=== PATIENT | female | born 1945 | race Caucasian/White ===

== ENCOUNTER → 2017-08-17 10:50 | Outpatient (CLI) | payer MEDICARE, OTHER, SELFPAY ==
--- NOTE | 2017-08-17 10:52 | DI.CT.S_ITS ---
PROCEDURE: CT CHEST WO CON INDICATIONS: LEUKOCYTOSIS TECHNIQUE: Noncontrast 2.0-2.5 mm thick sections acquired from the pulmonary apices to the posterior costophrenic angles. 7 mm thick coronal and sagittal MIP reformats were then acquired. A low radiation dose technique was utilized. COMPARISON: [facility], CT, CHEST/ABD/PEL WITH CONTRAST, 09/27/2013, 9:40. [facility], CT, CHEST/ABD/PEL WITHOUT CONTRAST, 07/04/2014, 8:29. [facility], CT, NECK/CHEST/ABD/PEL WO CONTRAST, 05/30/2015, 10:19. [facility], CT, NECK/CHEST/ABD/PEL WO CONTRAST, 07/30/2016, 13:52. FINDINGS: Image quality: Diagnostic, given the low radiation dose technique. Lungs and pleura: No change in the focal groundglass nodular region involving the posterior right upper lobe since 07/30/16, or 2 several more remote studies dating back to 09/27/13. No acute consolidation pleural effusion or pneumothorax. Central airways appear grossly patent. Scattered bilateral atelectasis/scarring. Mediastinum: Coronary artery calcifications are present. Heart size is normal. No pericardial effusion. No mediastinal adenopathy by size criteria. Thoracic aorta and central pulmonary arteries are normal in size. Esophagus is normal in caliber. No hiatal hernia. Bones and chest wall: No suspicious bony lesions. No vertebral body compression fractures. No axillary or supraclavicular adenopathy by size criteria. Thyroid gland negative. Abdomen: Incidental colonic diverticulosis. Gallbladder surgically absent. IMPRESSION: Unchanged appearance of right upper lobe ground glass nodule dating back to 2013. Recommend followup in one year to document 5 year total surveillance, as referenced below. Fleischner Society criteria for SOLID lung nodule followup. Nodule size (mm)Low-risk patientHigh-risk patient<6 (single or multiple)No routine followup.Optional CT at 12 months. 6-8 (single or multiple)CT at 6-12 months, then optional CT at 18-24 mo.CT at 6-12 months, then CT at 18-24 months. >8 (single)CT at 3 months, PET-CT, or biopsy. Same as for low-risk pts. >8 (multiple)CT at 3-6 months, then optional CT at 18-24 mo.CT at 3-6 months, then CT at 18-24 months. Fleischner Society criteria for SUB-SOLID lung nodule followup. Solitary pure ground-glass nodules<6 mm (ground glass or part solid)No followup needed. 6 mm or larger (ground glass)CT at 6-12 months to confirm persistence, then CT every 2 years until 5 years.6 mm or larger (part solid)CT at 3-6 months to confirm persistence, then annual CT until 5 years if unchanged and solid component remains <6 mm. Multiple sub-solid nodules<6 mmCT at 3-6 months, then CT consider at 2 & 4 years for high risk patients. [address] at 3-6 months. Subsequent management based on most suspicious lesions. Recommendations do not apply to lung cancer screening, patients with immunosuppression, or patients with known primary cancer. Dictated by: Artem Gunn M.D. on 08/17/2017 at 12:09 Approved by: Artem Gnun M.D. on 08/17/2017 at 12:14
== END ==
PROVIDERS: Visit Provider Nurse Practitioner Gerontology
DX: D72.829 Elevated white blood cell count, unspecified (principal)
CPT/HCPCS: 36415; 71250; 80053; 85025

== ENCOUNTER → 2017-08-17 11:08 | Outpatient (CLI) | payer MEDICARE, OTHER, SELFPAY ==
[2017-08-17 12:42] LABS: Add Manual Diff / Slide Review NO; Basophils Percent Auto 1.2 % (0-2); Eosinophils Percent Auto 2.3 % (2-4); Hematocrit 37.1 % (36-46); Hemoglobin 12.5 g/dL (12.0-16.0); Lymphocytes Percent Auto 42.4 % (25-40); Mean Corpuscular HGB Conc 33.8 % (30-36); Mean Corpuscular Hemoglobin 29.9 PG (26-34); Mean Corpuscular Volume 88.5 fL (80-100); Monocytes Percent Auto 10.6 % (3-14); Neutrophils Absolute Auto 4400 /uL (3000-5900); Neutrophils Percent Auto 43.5 % (50-75); Platelet Count 334 X10^3/uL (150-400); Red Blood Cell Count 4.19 X10^6/uL (4.0-5.2); Red Cell Distribution Width 14.9 % (11.6-14.8); White Blood Cell Count 10.2 X10^3/uL (4.5-11.0)
[2017-08-17 13:07] LABS: Alanine Aminotransferase 21 IU/L (9-52); Albumin 4.6 g/dL (3.5-5.0); Albumin Globulin Ratio 1.6 (1.0-2.8); Alkaline Phosphatase 103 U/L (38-126); Aspartate Aminotransferase 26 IU/L (14-36); BUN Creatinine Ratio 8.9 (6-22); Bilirubin Total 0.6 mg/dL (0.2-1.3); Blood Urea Nitrogen 31 mg/dL (7-17); Calcium 9.9 mg/dL (8.4-10.2); Carbon Dioxide 27 mmol/L (22-32); Chloride 98 mmol/L (98-107); Estimated Glomerular Filt Rate 12.9 mL/min (>60); Globulin 2.9 g/dL (1.7-4.1); Glucose 72 mg/dL (80-110); HEMOLYSIS < 15 (0-50); Potassium 4.8 mmol/L (3.4-5.1); Sodium 140 mmol/L (137-145); Total Protein 7.5 g/dL (6.3-8.2)
== END ==
PROVIDERS: Nurse Practitioner Gerontology; PCP Internal Medicine Hematology & Oncology; Visit Provider Internal Medicine Hematology & Oncology
DX: C84.48 Peripheral T-cell lymphoma, not elsewhere classified, lymph nodes of multiple sites (principal)
CPT/HCPCS: 36415; 80053; 85025

== ENCOUNTER → 2017-08-24 12:18 | Outpatient (CLI) | payer MEDICARE, OTHER, SELFPAY ==
--- NOTE | 2017-08-25 16:44 | DI.NM.S_ITS ---
DATE OF SERVICE: 08/24/2017 PROCEDURE PERFORMED: Exercise treadmill stress and rest myocardial perfusion imaging study with gating to assess ejection fraction and regional wall motion. ORDERING PROVIDER: Lashawn Cisneros MD INDICATIONS: The patient is a 71-year-old female with end-stage renal disease and dyspnea who requires evaluation prior to an artificial kidney. EXERCISE TREADMILL TESTING: The patient was able to exercise for a total of 5 minutes 18 seconds on a standard Etienne protocol, suggesting fair exercise capacity with an SUSIE of +5%. She had a normal hemodynamic response to exercise, achieving a maximum heart rate of 161 BPM (108% of her predicted maximum). She had no chest discomfort. Her resting ECG is normal and there are no significant ST-segment shifts to suggest ischemia. There were no arrhythmias noted except for occasional PVCs. At 4 minutes 30 seconds of exercise at a heart rate of 143 BPM, 24.1 mCi of technetium-99m Myoview IV was injected and the patient was imaged 15 minutes later using a gated SPECT acquisition protocol. The day prior, she had been injected with 25.2 mCi of technetium-99 Myoview and was imaged 30 minutes later following that injection using a gated SPECT acquisition protocol. FINDINGS: 1. RAW DATA: There was fair myocardial tracer uptake although breast shadows are noted. The lung/heart ratio was at the upper limits of normal at 0.40 but with a normal TID ratio of 0.89. 2. QUANTITATIVE GATED SPECT: Post stress ejection fraction is estimated at 75% without a focal wall motion abnormality, and specifically, the anterior wall and apex have brisk contractility. The resting ejection fraction is 74% with an end - diastolic volume of 100 mL. 3. MYOCARDIAL PERFUSION IMAGING: Post stress supine images show a mild perfusion defect in the distal portion of the anterior, anterolateral, and lateral wall extending out to the apex, but this defect nearly completely resolves on prone imaging, although a slight defect remains persistent, but this would be in a location that would be consistent with breast attenuation artifact. The resting images show a similar perfusion pattern with a more profound defect in the distal anterolateral apex. There are no areas of improvement. IMPRESSION: 1. Probable normal myocardial perfusion study. 2. Small- to moderate-sized [id number] fixed perfusion defect in the distal anterior wall, anterolateral wall, and lateral wall extending out to the apex which persists but significantly improves on the prone images and is more notable on resting images. Given the distribution of the defect and the absence of any regional wall motion, this most likely reflects breast attenuation artifact. There is no evidence for any significant myocardial ischemia. 3. Normal left ventricular systolic function without any focal wall motion abnormality. Lung/heart ratio is at the upper limits of normal. 4. Fair exercise capacity without angina or ECG evidence of ischemia with only occasional PVCs. 5. Comparison with the previous study from 05/18/2013 shows an identical perfusion pattern, again with a fixed distal anteroapical defect that was felt to reflect breast attenuation artifact. There has been no significant change, supporting that this most likely does not reflect underlying ischemic heart disease. Ana Rojas - AFIA/sara/ doc#: [id number]/job#: [id number] dd: 08/25/2017 15:32:00 dt: 08/25/2017 16:18:00 DICTATING MD/COPIES TO: Ho Mccollum MD; Lashawn Cisneros MD; Sumanth Gordon MD COPIES MNE: NU; SARANYA; ARCHANA
== END ==
PROVIDERS: PCP Internal Medicine Hematology & Oncology; Visit Provider Internal Medicine Cardiovascular Disease
DX: N18.6 End stage renal disease (principal); R06.00 Dyspnea, unspecified
CPT/HCPCS: 78452; 93016; 93017; 93018; A9502

== ENCOUNTER → 2017-08-25 10:46 | Outpatient (CLI) | payer MEDICARE, OTHER, SELFPAY ==
--- NOTE | 2017-08-25 | DI.ECHO.S_ITS ---
[facility] +---------+ [facility] +---------+ : : [address] : : : : [id number] : : : : Phone: [phone]+ Echocardiogram Report + + :Name: FRANK PRADEEP C Study Date: 08/25/2017 Height: 58 in : :[facility] Weight: 156 lb : : Gender: Female BSA: 1.6 m2 : :: 1945 Age: 71 yrs BP: 110/72 mmHg: :Reason For Study: SOB : :Ordering Physician: Lashawn : :Fredrickiwal Performed By: Chelsea Rodarte : + + Interpretation Summary The left ventricle is normal in size, wall thickness, and systolic function without any focal wall motion abnormalities with the ejection fraction visually estimated to be 55-60% and appeared more dynamic compared to the previous study. Assessment of diastolic parameters indicates a relaxation abnormality of the left ventricle, consistent with normal filling pressures. The right ventricle is normal in size and function and appears more dynamic compared to the previous study. Pulmonary artery pressures cannot be estimated because of the lack of a measurable TR jet velocity but the IVC suggests a low right atrial pressure of 3 mm Hg. The left atrium is mildly dilated while right atrial size is normal. Both atria have mildly increased in size since the prior echo exam. There is no significant valvular heart disease. The mitral and tricuspid regurgitation are less prominent. Procedure: A two-dimensional transthoracic echocardiogram with color flow and Doppler was performed. The study quality was technically adequate. Comparison is made with the echocardiogram of 12/28/2012. The patient was in normal sinus rhythm during the exam. Left Ventricle: The left ventricle is normal in size, wall thickness, and systolic function without any focal wall motion abnormalities. There is no ventricular septal defect visualized. The ejection fraction is estimated to be 55-60%. This is more dynamic compared to the previous study. Assessment of diastolic parameters indicates a relaxation abnormality of the left ventricle, consistent with normal filling pressures. Right Ventricle: The right ventricle is normal in size and function. This is more dynamic compared to the previous study. Atria: The left atrium is mildly dilated. Both atria have mildly increased in size since the prior echo exam. Right atrial size is normal. There is no Doppler evidence for an interatrial shunt. Mitral Valve: The mitral valve chordae are thickened and/or calcified. The mitral valve leaflets are slightly calcified. There is trace mitral regurgitation. This is less prominent compared to the previous study. Aortic Valve: The aortic valve is normal in structure and function. No aortic regurgitation is present. Tricuspid Valve: The tricuspid valve is normal in structure and function. There is a trace or physiologic amount of tricuspid regurgitation. Pulmonary artery pressures cannot be estimated because of the lack of a measurable TR jet velocity. Pulmonic Valve: The pulmonic valve is not well seen, but is grossly normal. There is no significant valvular heart disease. Great Vessels: The aortic root is normal size. The ascending aorta is normal in size. The aortic arch is normal in size. The IVC is of normal diameter and collapses greater than 50% with a sniff. This suggests a low right atrial pressure of 3 mm Hg. Pericardium/ Pleura There is no pericardial effusion. MMode/2D Measurements & Calculations LVIDd: 4.5 cm LVOT diam: 2.0 cm LVIDs: 3.1 cm Ao root diam: 3.1 cm FS: 30.6 % asc Aorta Diam: 2.7 cm EPSS: 0.68 cm Ao Arch Diam (Prox Trans): 2.6 cm IVSd: 0.74 cm LVPWd: 0.98 cm LV moses. diameter/BSA (cm/m^2): 2.7 LV sys. diameter/BSA (cm/m^2): 1.9 LA A2 area: 17.9 cm2 RA long axis: 4.8 cm LA A4 area: 22.0 cm2 RA area: 14.9 cm2 LA length (vol): 5.5 cm RA vol: 39.1 ml LA vol: 61.0 ml RA : 23.9 ml/m2 LA vol index: 37.3 ml/m2 IVC diam: 1.3 cm RVD1 (basal): 2.8 cm RVD2 (mid): 2.2 cm TAPSE: 2.0 cm Doppler Measurements & Calculations Ao V2 max: 166.2 cm/sec LVOT Max Mickey: 87.5 cm/sec Ao V2 mean: 113.6 cm/sec LV V1 max P.1 mmHg Ao max P.1 mmHg LV V1 VTI: 17.0 cm Ao mean P.7 mmHg JIM(I,D): 1.9 cm2 Ao V2 VTI: 29.6 cm JIM(V,D): 1.7 cm2 sev ratio: 0.58 JIM indexed to BSA (cm^2/m^2): 1.1 MV E max mickey: 60.1 cm/sec TR max mickey: 215.5 cm/sec MV A max mickey: 92.5 cm/sec TR max P.6 mmHg MV E/A: 0.65 PA V2 max: 94.0 cm/sec Med Peak E' Mickey: 8.6 cm/sec PA V2 mean: 58.6 cm/sec E/E' med: 7.0 PA mean P.6 mmHg Lat Peak E' Mickey: 9.6 cm/sec PA Accel Time: 0.08 sec E/E' lat: 6.2 E/e' average: 6.6 MV dec time: 0.13 sec MV P1/2t: 36.6 msec MV P1/2t max mickey: 60.3 cm/sec MVA(P1/2t): 6.0 cm2 Reading Physician:GENE
== END ==
PROVIDERS: PCP Internal Medicine Hematology & Oncology; Visit Provider Internal Medicine Cardiovascular Disease
DX: R06.02 Shortness of breath (principal)
CPT/HCPCS: 93306

== ENCOUNTER → 2017-08-26 12:51 | Oncology outpatient (ONC) | payer MEDICARE, OTHER, SELFPAY ==
[2017-08-26 13:16] VITALS: BP 125/71; PULSE 73; RESP 18; TEMP 37
--- NOTE | 2017-08-26 13:44 | ONC.PN ---
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 I am seeing her for the 1st time today and review old records going back towards 2013. 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 No lymphadenopathy was identified on imaging and the patient had a 2nd opinion at [facility] and Dr. Stratton Also recommended observation. Her current CT scan of the chest without contrast shows a chronic focal ground-glass opacification in the right upper lobe posteriorly without change compared to older CTs. There has been no evidence of a cutaneous lymphoma. No adenopathy by size criteria and no evidence of disease progression I could not palpate any peripheral lymphadenopathy she does have some night sweats but they might be unrelated. 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 No need for bone marrow evaluation given lack of pancytopenia Liver enzymes are stable. Creatinine is abnormal with 3.5 She has a dialysis catheter on the anterior chest wall an AV fistula without signs of inflammation. I recommended for her to come back in 6 months with repeat lab studies and a noncontrast CT of chest abdomen and pelvis. 08/26/17 13:59 (2) Leukocytosis Current visit: No Status: Acute - Time Spent with Patient Approximately 45 min were spent in counseling and coordination of care PN -Subjective Interval history: I am seeing this pleasant 71-year-old lady for the 1st time at transferring care from Dr. Mckinney. Large body of records from last several years reviewed regarding the finding of a clonal T-cell lymphoproliferative disorder. The patient has a prior history of nonspecific leukocytosis which appear to be mostly neutrophils rather than lymphocytes. 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 Franks. In 2013 she had a tender slightly enlarged lymph node in the left axilla measuring about 1.5 cm and underwent a needle core biopsy that showed a clonal T-cell population. Flow cytometry suggested that these are LGL like T cells accounting for 20% of the lymphoid gait that were positive for CD 3 and CD 56. Clonality was documented by receptor studies. She did not have any other lymphadenopathy on CT of chest abdomen and pelvis. She was seen by Dr Luciano Stratton at [facility] for a 2nd opinion in 2013, whose nodes I reviewed, favoring a nonspecific T-cell disorder possibly LGL and recommended no intervention other than surveillance. From what I can review there was no skin involvement. The patient had a CT of the chest without contrast on August 17, 2017 showing no significant adenopathy by size criteria. There is a focal ground-glass nodular region in the posterior right upper lobe that has not changed or the past last 2 CT scans, compared to the previous 1 from July 2016 for example. - Patient Self-Reported Symptoms SR Constitution: Fatigue/Malaise, Night Sweats - Additional ROS All systems PM: reviewed and no additional remarkable complaints except as stated Results - Imaging Additional studies: Procedures Application of splint (09/07/12) Fusion or refusion of 2-3 vertebrae (11/22/12) Injection or infusion of other therapeutic or prophylactic substance (12/12/12) Insertion of catheter into spinal canal for infusion of therapeutic or palliative substances (11/22/12) Insertion of interbody spinal fusion device (11/22/12) Lumbar and lumbosacral fusion of the anterior column, anterior technique (11/22/12) Lumbar and lumbosacral fusion of the anterior column, posterior technique (11/22/12) Non-invasive mechanical ventilation (12/24/12) Other exploration and decompression of spinal canal (11/22/12) Venous catheterization, not elsewhere classified (12/24/12) Home Medications and Allergies Home Medications Medication Instructions Recorded Confirmed Type temazepam 30 mg PO HS #0 09/07/12 History carvedilol [Coreg] 3.125 mg PO BID #0 08/13/16 History lansoprazole [Prevacid SoluTab] 15 mg PO BID #0 08/13/16 History atorvastatin [Lipitor] 10 mg PO DAILY 08/26/17 08/26/17 History calcium carbonate [Tums] 200 mg PO TID 08/26/17 08/26/17 History Allergies Allergy/AdvReac Type Severity Reaction Status Date / Time ARLENE Inhibitors AdvReac Mild hacking Unverified 06/30/17 12:25 [ARLENE INHIBITORS] cough codeine [CODEINE] AdvReac Mild vomiting Unverified 06/30/17 12:25 Exam Vital signs: Last Vital Signs Temp 98.6 F 08/26/17 13:16 Pulse 73 08/26/17 13:16 Resp 18 08/26/17 13:16 BP 125/71 H 08/26/17 13:16 The patient is ambulatory in no apparent distress and maintains a good functional status. She has an AV fistula in the right upper arm there is only intermittently functional. She also has a tunneled dialysis catheter in the right upper chest without signs of infection. - Constitutional positive no acute distress - Routine HEENT Exam Eye: Present: EOMI. Absent: conjunctival icterus - Routine Neck Exam Absent: lymphadenopathy - Routine Chest/Breast/Axilla Exam Axillae: Absent: lymphadenopathy, mass Comments: Dialysis catheter in the right upper chest without signs of infection - Routine Abdominal Exam Present: soft. Absent: tenderness, organomegaly - Routine Extremities Exam Absent: cyanosis - Routine Skin Exam Present: intact - Routine Neurological Exam Present: alert, oriented X3. Absent: sensory deficit, motor deficit - Routine Psychiatric Exam Present: normal affect
--- NOTE | 2017-08-26 13:50 | P.PNONC_ITS ---
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 I am seeing her for the 1st time today and review old records going back towards 2013. 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 No lymphadenopathy was identified on imaging and the patient had a 2nd opinion at [facility] and Dr. Stratton Also recommended observation. Her current CT scan of the chest without contrast shows a chronic focal ground- glass opacification in the right upper lobe posteriorly without change compared to older CTs. There has been no evidence of a cutaneous lymphoma. No adenopathy by size criteria and no evidence of disease progression I could not palpate any peripheral lymphadenopathy she does have some night sweats but they might be unrelated. 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 No need for bone marrow evaluation given lack of pancytopenia Liver enzymes are stable. Creatinine is abnormal with 3.5 She has a dialysis catheter on the anterior chest wall an AV fistula without signs of inflammation. I recommended for her to come back in 6 months with repeat lab studies and a noncontrast CT of chest abdomen and pelvis. 08/26/17 13:59 (2) Leukocytosis Current visit: No Status: Acute - Time Spent with Patient Approximately 45 min were spent in counseling and coordination of care PN -Subjective Interval history: I am seeing this pleasant 71-year-old lady for the 1st time at transferring care from Dr. Mckinney. Large body of records from last several years reviewed regarding the finding of a clonal T-cell lymphoproliferative disorder. The patient has a prior history of nonspecific leukocytosis which appear to be mostly neutrophils rather than lymphocytes. 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 Franks. In 2013 she had a tender slightly enlarged lymph node in the left axilla measuring about 1.5 cm and underwent a needle core biopsy that showed a clonal T -cell population. Flow cytometry suggested that these are LGL like T cells accounting for 20% of the lymphoid gait that were positive for CD 3 and CD 56. Clonality was documented by receptor studies. She did not have any other lymphadenopathy on CT of chest abdomen and pelvis. She was seen by Dr Luciano Stratton at [facility] for a 2nd opinion in 2013, whose nodes I reviewed, favoring a nonspecific T-cell disorder possibly LGL and recommended no intervention other than surveillance. From what I can review there was no skin involvement. The patient had a CT of the chest without contrast on August 17, 2017 showing no significant adenopathy by size criteria. There is a focal ground-glass nodular region in the posterior right upper lobe that has not changed or the past last 2 CT scans, compared to the previous 1 from July 2016 for example. - Patient Self-Reported Symptoms SR Constitution: Fatigue/Malaise, Night Sweats - Additional ROS All systems PM: reviewed and no additional remarkable complaints except as stated Results - Imaging Additional studies: Procedures Application of splint (09/07/12) Fusion or refusion of 2-3 vertebrae (11/22/12) Injection or infusion of other therapeutic or prophylactic substance (12/12/12) Insertion of catheter into spinal canal for infusion of therapeutic or palliative substances (11/22/12) Insertion of interbody spinal fusion device (11/22/12) Lumbar and lumbosacral fusion of the anterior column, anterior technique () Lumbar and lumbosacral fusion of the anterior column, posterior technique (11/22) Non-invasive mechanical ventilation (12/24/12) Other exploration and decompression of spinal canal (11/22/12) Venous catheterization, not elsewhere classified (12/24/12) Home Medications and Allergies Home Medications Medication Instructions Recorded Confirmed Type temazepam 30 mg PO HS #0 09/07/12 History carvedilol [Coreg] 3.125 mg PO BID #0 08/13/16 History lansoprazole [Prevacid SoluTab] 15 mg PO BID #0 08/13/16 History atorvastatin [Lipitor] 10 mg PO DAILY 08/26/17 08/26/17 History calcium carbonate [Tums] 200 mg PO TID 08/26/17 08/26/17 History Allergies Allergy/AdvReac Type Severity Reaction Status Date / Time ARLENE Inhibitors AdvReac Mild hacking Unverified 06/30/17 12:25 [ARLENE INHIBITORS] cough codeine [CODEINE] AdvReac Mild vomiting Unverified 06/30/17 12:25 Exam Vital signs: Last Vital Signs Temp 98.6 F 08/26/17 13:16 Pulse 73 08/26/17 13:16 Resp 18 08/26/17 13:16 BP 125/71 H 08/26/17 13:16 The patient is ambulatory in no apparent distress and maintains a good functional status. She has an AV fistula in the right upper arm there is only intermittently functional. She also has a tunneled dialysis catheter in the right upper chest without signs of infection. - Constitutional positive no acute distress - Routine HEENT Exam Eye: Present: EOMI. Absent: conjunctival icterus - Routine Neck Exam Absent: lymphadenopathy - Routine Chest/Breast/Axilla Exam Axillae: Absent: lymphadenopathy, mass Comments: Dialysis catheter in the right upper chest without signs of infection - Routine Abdominal Exam Present: soft. Absent: tenderness, organomegaly - Routine Extremities Exam Absent: cyanosis - Routine Skin Exam Present: intact - Routine Neurological Exam Present: alert, oriented X3. Absent: sensory deficit, motor deficit - Routine Psychiatric Exam Present: normal affect
== END ==
PROVIDERS: PCP Internal Medicine Hematology & Oncology; Referring Provider Internal Medicine Hematology & Oncology; Visit Provider Internal Medicine Hematology & Oncology
DX: D47.9 Neoplasm of uncertain behavior of lymphoid, hematopoietic and related tissue, unspecified (principal)
CPT/HCPCS: 99215

== ENCOUNTER → 2017-08-31 11:51 | Outpatient (CLI) | payer MEDICARE, OTHER, SELFPAY ==
--- NOTE | 2017-09-02 09:54 | PM.PFT.1 ---
Pulmonary Function Test Referral & Results Date Patient Seen: 08/31/17 Requesting provider: Lashawn Cisneros Results: The spirometry demonstrates an FVC of 2.45 L which is 109% of predicted. The FEV1 was measured at 1.97 L which is 117% of predicted. The FEV1/FVC ratio was 80 which is 105% of predicted. Lung volumes show an SVC of 2.57 L which is 115% of predicted. The diffusing capacity was measured at 16.63 which is 102% of predicted. The maximum voluntary ventilation was normal. Interpretation: This study demonstrates normal pulmonary function.
== END ==
PROVIDERS: Family Provider Internal Medicine Hematology & Oncology; PCP Internal Medicine; Visit Provider Internal Medicine Cardiovascular Disease
DX: R06.02 Shortness of breath (principal)
CPT/HCPCS: 94010; 94726; 94729

== ENCOUNTER → 2017-10-21 11:12 | Outpatient (CLI) | payer MEDICARE, OTHER, SELFPAY ==
[2017-10-21 12:26] LABS: Alanine Aminotransferase 25 IU/L (9-52); Albumin 4.7 g/dL (3.5-5.0); Albumin Globulin Ratio 1.9 (1.0-2.8); Alkaline Phosphatase 108 U/L (38-126); Aspartate Aminotransferase 25 IU/L (14-36); BUN Creatinine Ratio 11.5 (6-22); Bilirubin Total 0.7 mg/dL (0.2-1.3); Blood Urea Nitrogen 61 mg/dL (7-17); Calcium 10.2 mg/dL (8.4-10.2); Carbon Dioxide 23 mmol/L (22-32); Chloride 99 mmol/L (98-107); Globulin 2.5 g/dL (1.7-4.1); Glucose 94 mg/dL (80-110); HEMOLYSIS < 15 (0-50); Magnesium 2.5 mg/dL (1.6-2.3); Potassium 4.9 mmol/L (3.4-5.1); Sodium 137 mmol/L (137-145); Total Protein 7.2 g/dL (6.3-8.2)
[2017-10-21 12:57] LABS: Thyroid Stimulating Hormone 1.64 uIU/mL (0.47-4.68)
== END ==
PROVIDERS: PCP Internal Medicine; Visit Provider Internal Medicine Cardiovascular Disease
DX: I49.3 Ventricular premature depolarization (principal); I10 Essential (primary) hypertension
CPT/HCPCS: 36415; 80053; 83735; 84443

== ENCOUNTER → 2017-11-11 11:23 | Outpatient (CLI) | payer MEDICARE, OTHER, SELFPAY | PROVIDERS: Family Provider Internal Medicine Hematology & Oncology; PCP Internal Medicine; Visit Provider Radiology Vascular & Interventional Radiology | DX: N18.6 End stage renal disease (principal); I10 Essential (primary) hypertension; I25.10 Atherosclerotic heart disease of native coronary artery without angina pectoris | CPT/HCPCS: 93005; 93010 ==

== ENCOUNTER 2018-04-14 17:28 | Emergency (ER) | payer MEDICARE, OTHER, SELFPAY ==
[2018-04-14] VITALS (7 sets, daily range): BP systolic 128–156; BP diastolic 54–90; PULSE 80–98; RESP 15–23; TEMP 36.8; O2SAT 94–99
--- NOTE | 2018-04-14 17:36 | DI.CT.S_ITS ---
PROCEDURE: CT HEAD/BRAIN WO CON INDICATIONS: diff talking, stroke TECHNIQUE: Noncontrast 4.5 mm thick angled axial sections acquired from the foramen magnum to the vertex, with coronal and sagittal reformats. For radiation dose reduction, the following was used: automated exposure control, adjustment of mA and/or kV according to patient size. COMPARISON: None. FINDINGS: Image quality: Excellent. CSF spaces: Basal cisterns are patent. No extra-axial fluid collections. The ventricles are symmetric in size and shape. Brain: No intracranial bleeds or masses. There is cerebral volume loss for age, with resultant ventricular and sulcal prominence. There are periventricular and deep white matter chronic small vessel ischemic changes. There is intracranial internal carotid artery atherosclerosis. Skull and face: Calvarium and visualized facial bones appear intact, without suspicious lesions. Sinuses: Visualized sinuses and mastoids are clear. IMPRESSION: 1. No acute intracranial findings. 2. Mild findings likely associated with chronic microvascular ischemic changes. Dictated by: Sherin Mendez M.D. on 04/14/2018 at 18:07 Approved by: Sherin Mendez M.D. on 04/14/2018 at 18:08
[2018-04-14 18:05] LABS: INR 1.1 (0.9-1.3); Prothrombin Time 12.4 SECONDS (10.1-12.7)
[2018-04-14 18:08] LABS: PTT Partial Thromboplastin Tim 35 SECONDS (26.4-36.2)
[2018-04-14 18:09] LABS: Add Manual Diff / Slide Review NO; BUN Creatinine Ratio 11.6 (6-22); Basophils Absolute Auto 200 /uL (0-100); Basophils Percent Auto 1.3 % (0-2); Blood Urea Nitrogen 50 mg/dL (7-17); Carbon Dioxide 19 mmol/L (22-32); Chloride 103 mmol/L (98-107); Eosinophils Absolute Auto 100 /uL (0-450); Eosinophils Percent Auto 0.7 % (2-4); Estimated Glomerular Filt Rate 10.1 mL/min (>60); Glucose 103 mg/dL (80-110); HEMOLYSIS 18 (0-50); Hematocrit 39.9 % (36-46); Lymphocytes Absolute Auto 4300 /uL (1100-4500); Lymphocytes Percent Auto 31.8 % (25-40); Mean Corpuscular HGB Conc 32.6 % (30-36); Mean Corpuscular Volume 91.9 fL (80-100); Monocytes Absolute Auto 1800 /uL (0-900); Monocytes Percent Auto 13.2 % (3-14); Neutrophils Absolute Auto 7100 /uL (1500-7000); Platelet Count 347 X10^3/uL (150-400); Potassium 4.5 mmol/L (3.4-5.1); Red Blood Cell Count 4.34 X10^6/uL (4.0-5.2); Red Cell Distribution Width 14.4 % (11.6-14.8); Sodium 137 mmol/L (137-145); White Blood Cell Count 13.4 X10^3/uL (4.5-11.0)
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
[2018-04-14] MEDS: ASPIRIN 300 MG SUPP PR (20:07)
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
--- NOTE | 2018-04-15 00:52 | PC.NURSE ---
Report given to Estrellita.
[2018-04-15 01:15] VITALS: BP 140/66; PULSE 95; RESP 24; O2SAT 98
[2018-04-15 02:07] VITALS: BP 130/60; PULSE 105; RESP 18; O2SAT 99
== END 2018-04-15 02:29 | disposition short-term general hospital (02) ==
PROVIDERS: Emergency Medicine; Emergency Provider Emergency Medicine; Family Provider Internal Medicine Hematology & Oncology; PCP Internal Medicine
DX: I63.9 Cerebral infarction, unspecified (principal); N18.4 Chronic kidney disease, stage 4 (severe)
CPT/HCPCS: 36415; 36591; 70450; 80048; 82962; 85025; 85610; 85730; 93005; 93010; 99284; 99285; 99291

== ENCOUNTER → 2018-08-04 10:03 | Outpatient (CLI) | payer MEDICARE, OTHER, SELFPAY | PROVIDERS: PCP Internal Medicine; Visit Provider Internal Medicine | DX: Z13.820 Encounter for screening for osteoporosis (principal); M81.0 Age-related osteoporosis without current pathological fracture; Z78.0 Asymptomatic menopausal state; Z90.722 Acquired absence of ovaries, bilateral; Z87.891 Personal history of nicotine dependence; E78.5 Hyperlipidemia, unspecified | CPT/HCPCS: 36415; 77080; 77081; 80061; 84450; 84460 ==

== ENCOUNTER → 2018-08-04 10:26 | Outpatient (CLI) | payer MEDICARE, OTHER, SELFPAY ==
[2018-08-04 11:21] LABS: Alanine Aminotransferase 21 IU/L (9-52); Aspartate Aminotransferase 26 IU/L (14-36); Cholesterol 139 mg/dL (140-199); HDL Cholesterol 41 mg/dL (40-60); LDL Cholesterol Calculated 58 mg/dL (<100); Triglycerides 201 mg/dL (35-150)
== END ==
PROVIDERS: PCP Internal Medicine; Visit Provider Internal Medicine
DX: E78.5 Hyperlipidemia, unspecified (principal)
CPT/HCPCS: 36415; 80061; 84450; 84460

== ENCOUNTER 2018-10-10 13:08 | Emergency (ER) | payer MEDICARE, OTHER, SELFPAY ==
[2018-10-10 13:11] VITALS: BP 127/76; PULSE 81; RESP 18; O2SAT 96; BMI 31.3
[2018-10-10 13:21] VITALS: TEMP 37
--- NOTE | 2018-10-10 13:44 | DI.RAD.S_ITS ---
PROCEDURE: XR CHEST 1V INDICATIONS: weakness, tingling TECHNIQUE: One view of the chest was acquired. COMPARISON: [facility], CHEST 2 VIEW, 04/17/2013, 12:41. [facility], CHEST 2 VIEW, 02/09/2013, 8:45. FINDINGS: Surgical changes and devices: None. Lungs and pleura: Lungs are clear. No pleural effusions or pneumothorax. Mediastinum: Mediastinal contours appear normal. Heart size is normal. Bones and chest wall: No suspicious bony lesions. Overlying soft tissues appear unremarkable. IMPRESSION: Normal for age, source of current weakness and tingling symptoms is not seen. Dictated by: Shashank Harden M.D. on 10/10/2018 at 14:01 Approved by: Shashank Harden M.D. on 10/10/2018 at 14:01
[2018-10-10 13:55] LABS: Add Manual Diff / Slide Review NO; Basophils Absolute Auto 0 /uL (0-100); Basophils Percent Auto 0.4 % (0-2); Eosinophils Absolute Auto 200 /uL (0-450); Eosinophils Percent Auto 1.9 % (2-4); Hematocrit 37.6 % (36-46); Hemoglobin 12.7 g/dL (12.0-16.0); Lymphocytes Absolute Auto 3600 /uL (1100-4500); Mean Corpuscular HGB Conc 33.8 % (30-36); Mean Corpuscular Volume 91.8 fL (80-100); Monocytes Absolute Auto 1100 /uL (0-900); Monocytes Percent Auto 9.9 % (3-14); Neutrophils Absolute Auto 6200 /uL (1500-7000); Neutrophils Percent Auto 55.8 % (50-75); Platelet Count 413 X10^3/uL (150-400); Red Cell Distribution Width 14.8 % (11.6-14.8); White Blood Cell Count 11.1 X10^3/uL (4.5-11.0)
[2018-10-10 14:06] LABS: BUN Creatinine Ratio 13.7 (6-22); Blood Urea Nitrogen 48 mg/dL (7-17); Carbon Dioxide 22 mmol/L (22-32); Chloride 106 mmol/L (98-107); Estimated Glomerular Filt Rate 12.8 mL/min (>60); Glucose 89 mg/dL (80-110); Magnesium 1.9 mg/dL (1.6-2.3); Potassium 5.1 mmol/L (3.4-5.1); Sodium 140 mmol/L (137-145)
[2018-10-10 14:11] LABS: HEMOLYSIS 62 (0-50)
[2018-10-10 14:30] VITALS: BP 120/62; PULSE 78; RESP 24; O2SAT 98
[2018-10-10 14:51] VITALS: BP 120/62; PULSE 77; RESP 15; O2SAT 98
[2018-10-10 15:11] LABS: Bacteria Urine None Seen
[2018-10-10 15:19] LABS: Culture Indicated Urine Specimen Cultured; RBC Urine 1-5/HPF (0-5/HPF); Squamous Epithelial Cell Urine 0-1 /HPF (0-5/HPF); WBC Urine 10-30/HPF (0-5/HPF)
[2018-10-10] MEDS: CALCIUM GLUCONATE 4.65 MEQ in SODIUM CHLORIDE 0.9% 50 ML 120 ML IV (15:32)
[2018-10-10 15:49] VITALS: BP 139/63; PULSE 74; RESP 24; O2SAT 98
--- NOTE | 2018-10-10 16:13 | ED_ITS ---
HPI - Neuro Symptoms/Deficit General Chief Complaint: Neuro Symptoms/Deficit Stated Complaint: numb arms fingers lips part of her nose Time Seen by Provider: 10/10/18 13:27 Source: patient and family Mode of arrival: ambulatory Limitations: no limitations History of Present Illness HPI Narrative: 72-year-old female nonsmoker with history of end-stage renal disease whom typically receives hemodialysis on Mondays, Wednesdays and Fridays presents with her and a chief complaint a few days of numbness and tin gling in her fingers, arms and occasionally in her jaw. She feels occasionally dizzy and weak. She denies any change in her medications or diet. She denies any chest pain or shortness of breath. She has had no fever or chills. She has not missed any episodes of her dialysis period a week or 2 ago she did have an intramuscular injection of denosumab. Onset (ago): day(s) Location: left arm and right arm History of same: No Severity: mild Quality: tingling Relieving factors: none Exacerbating factors: none Context: gradual onset On Anticoagulants: No Treatments Prior to Arrival: none Related Data Home Medications Medication Instructions Recorded Confirmed temazepam 30 mg PO BEDTIME #0 09/07/12 10/10/18 atorvastatin [Lipitor] 10 mg PO DAILY 08/26/17 10/10/18 allopurinol 100 mg PO DAILY 04/14/18 10/10/18 furosemide 40 mg PO BID 04/14/18 10/10/18 lidocaine-prilocaine 1 applic TOPICAL DIRECTED 04/14/18 10/10/18 sevelamer carbonate 1,600 mg PO TIDWM 04/14/18 10/10/18 cyclobenzaprine 1 tab PO BID PRN 10/10/18 10/10/18 ondansetron HCl 1 tab PO Q12HR PRN 10/10/18 10/10/18 Allergies Allergy/AdvReac Type Severity Reaction Status Date / Time ARLENE Inhibitors AdvReac Mild hacking Verified 10/10/18 13:11 [ARLENE INHIBITORS] cough codeine [CODEINE] AdvReac Mild vomiting Verified 10/10/18 13:11 Review of Systems Constitutional Denies chills, Denies fever(s), Denies lethargy and Denies weakness Eyes Denies change in vision, Denies eye discharge, Denies irritation and Denies loss of vision ENT Ears, Nose, Mouth, and Throat: Denies change in voice, Denies neck pain and Denies sore throat Cardiovascular Denies chest pain, Denies irregular heart rhythm, Denies lightheadedness, Denies palpitations, Denies dyspnea, Denies dyspnea on exertion and Denies orthopnea Respiratory Denies cough, Denies dyspnea, Denies dyspnea on exertion and Denies wheezing Gastrointestinal Gastrointestinal: Denies abdominal pain, Denies change in bowel habits, Denies diarrhea, Denies nausea and Denies vomiting Genitourinary Denies hematuria, Denies flank pain, Denies urinary incontinence and Denies urinary urgency Musculoskeletal Denies neck pain Integumentary/Breasts Denies pruritus, Denies erythema, Denies rash and Denies wounds Neurologic Denies confusion, Denies loss of vision and Denies weakness Psychiatric Denies anxiety, Denies confusion, Denies depression, Denies homicidal ideation and Denies suicidal ideation Endocrine Denies palpitations Hematologic/Lymphatic Denies easy bruising Allergic/Immunologic Denies wheezing PFSH Social History Smoking Status: Former smoker Social History Smoking Status: Former smoker Exam Narrative Exam Narrative: GENERAL: 72-year-old female appears stated age, in mild dist ress, obese HEAD: Atraumatic. Normocephalic. No temporal or scalp tenderness. EYES: Pupils equal round and reactive. Extraocular motions intact. No scleral icterus. No injection or drainage. ENT: Nose without bleeding, purulent drainage or septal hematoma. Throat without erythema, tonsillar hypertrophy or exudate. Uvula midline. Airway patent. NECK: Trachea midline. No JVD or lymphadenopathy. Supple, nontender, no meningeal signs. CARDIOVASCULAR: Regular rate and rhythm without murmurs, gallops, or rubs. RESPIRATORY: Clear to auscultation. Breath sounds equal bilaterally. No wheezes, rales, or rhonchi. GASTROINTESTINAL: Abdomen soft, non-tender, nondistended. No hepato- splenomegaly, or palpable masses. No guarding. EXTREMITIES: No clubbing, cyanosis, or edema. No joint tenderness, effusion, or edema noted. BACK: Nontender without deformity or crepitance. No flank tenderness. NEURO: AOx3. Chvostek/Trousseau negative. No tetany. SKIN: No rash or erythema. Initial Vital Signs Initial Vital Signs: Vital Signs Pulse Rate 81 10/10/18 13:11 Respiratory Rate 18 10/10/18 13:11 Blood Pressure 127/76 10/10/18 13:11 Pulse Oximetry 96 10/10/18 13:11 Course Orders Ordered: ED Orders 10/10/18 13:44 XR chest 1V Stat 10/10/18 13:45 Basic Metabolic Panel Stat Complete Blood Count AUTO DIFF Stat Magnesium Stat 10/10/18 13:54 EKG-12 Lead Stat 10/10/18 15:10 Urine Culture Stat Urine Microscopic Stat Discontinued Medications Calcium Gluconate 4.65 meq/ (Sodium Chloride) 60 mls @ 120 mls/hr IV NOW ONE Stop: 10/10/18 15:02 Last Infusion: 10/10/18 15:53 Dose: 0 mls/hr Admin: 10/10/18 15:32 Dose: 120 mls/hr Consultations Consultation #1: call to hospitalist at [facility], happy to accept, but requests a discussion with canoe inspector, also wants Ca Gluconate 1 amp Consultation #2: Dr. Byrd (nephro) happy to arrange for HD Vital Signs - 8 hr 10/10/18 13:11 10/10/18 13:21 10/10/18 14:30 Temperature 98.6 F Pulse Rate 81 78 Respiratory Rate 18 24 Blood Pressure 127/76 Blood Pressure [Left Arm] 120/62 Pulse Oximetry 96 98 10/10/18 14:51 10/10/18 15:49 Temperature Pulse Rate 77 74 Respiratory Rate 15 24 Blood Pressure Blood Pressure [Left Arm] 120/62 139/63 Pulse Oximetry 98 98 MDM - Neuro Symptoms/Deficit Lab Data Result diagrams: 10/10/18 13:45 10/10/18 13:45 Lab Results 10/10/18 10/10/18 10/10/18 Range/Units 13:45 13:45 15:10 WBC 11.1 H (4.5-11.0) X10^3/uL RBC 4.10 (4.0-5.2) X10^6/uL Hgb 12.7 (12.0-16.0) g/dL Hct 37.6 (36-46) % MCV 91.8 (80-100) fL MCH 31.0 (26-34) PG MCHC 33.8 (30-36) % RDW 14.8 (11.6-14.8) % Plt Count 413 H (150-400) X10^3/uL Neut % (Auto) 55.8 (50-75) % Lymph % (Auto) 32.0 (25-40) % [place] % (Auto) 9.9 (3-14) % Eos % (Auto) 1.9 L (2-4) % Baso % (Auto) 0.4 (0-2) % Neut # (Auto) 6200 (9577-7358) /uL Lymph # (Auto) 3600 (3127-2384) /uL [place] # (Auto) 1100 H (0-900) /uL Eos # (Auto) 200 (0-450) /uL Baso # (Auto) 0 (0-100) /uL Sodium 140 (137-145) mmol/L Potassium 5.1 (3.4-5.1) mmol/L Chloride 106 (98-107) mmol/L Carbon Dioxide 22 (22-32) mmol/L BUN 48 H (7-17) mg/dL Creatinine 3.50 H (0.52-1.04) mg/dL Estimated GFR 12.8 L (>60) mL/min BUN/Creatinine Ratio 13.7 (6-22) Glucose 89 (80-110) mg/dL Calcium 6.0 L* (8.4-10.2) mg/dL Magnesium 1.9 (1.6-2.3) mg/dL Urine RBC 1-5/hpf (0-5/HPF) Urine WBC 10-30/hpf H (0-5/HPF) Ur Squamous Epith Cells 0-1 /hpf (0-5/HPF) Urine Bacteria None seen (None) Ur Culture Indicated? Specimen cultured Urine Dip Bedside Urine Glucose Negative Bedside Urine Bilirubin - Negative Bedside Urine Ketone - Negative Urine Specific [place] 1.010 Bedside Urine Occult Blood + Bedside Urine pH 7.5 Bedside Urine Protein + 30 Bedside Urine Urobilinogen - Negative Bedside Urine Nitrite - Negative Bedside Urine Leukocytes +++ 500 Esterase MDM Narrative Medical decision making narrative: 72-year-old female end-stage renal disease patient with severe, symptomatic hypocalcemia requires hospitalization, however will require a higher level of care given her need for regularly scheduled dialysis during her admission. Critical Care Time Critical Care Time: Yes Total Critical Care Time: 30 Attestation: The high probability of a clinically significant, sudden or life threatening deterioration of the [neuro] system(s) required my full and direct attention, intervention and personal management. The aggregate critical care time was [30] minutes. This time is in addition to time spent performing reported procedures but includes the following: [x] Data Review and interpretation [x] Patient assessment and monitoring of vital signs [x] Documentation [x] Medication orders and management Discharge Plan Departure Patient Disposition: [facility] Clinical Impression: Hypocalcemia Discharge Date/Time: 10/10/18 16:27 Interventions: ED Discharge Assessment Last Done: 10/10/18 16:26 Prescriptions: No Action temazepam 30 MG capsule 30 mg PO BEDTIME Qty: 0 RF: 0 atorvastatin [Lipitor] 10 mg Tablet 10 mg PO DAILY RF: 0 furosemide 40 mg tablet 40 mg PO BID RF: 0 allopurinol 100 mg tablet 100 mg PO DAILY RF: 0 lidocaine-prilocaine 2.5-2.5 % cream 1 applic Topical DIRECTED RF: 0 sevelamer carbonate 800 mg tablet 1,600 mg PO TIDWM RF: 0 ondansetron HCl 8 mg tablet 1 tab PO Q12HR PRN (Reason: Nausea) RF: 0 cyclobenzaprine 5 mg Tablet 1 tab PO BID PRN (Reason: Spasms) RF: 0 Referrals: Malina Coker MD [Primary Care Provider] -
== END 2018-10-10 16:27 | disposition short-term general hospital (02) ==
PROVIDERS: Emergency Provider Emergency Medicine; PCP Internal Medicine
DX: E83.51 Hypocalcemia (principal); R20.0 Anesthesia of skin; N18.6 End stage renal disease; Z99.2 Dependence on renal dialysis
CPT/HCPCS: 36591; 71045; 80048; 81003; 81015; 83735; 85025; 87077; 87086; 87186; 93005; 96365; 99284; 99285; J0610

== ENCOUNTER → 2018-12-14 08:41 | Outpatient (CLI) | payer MEDICARE, OTHER, SELFPAY ==
--- NOTE | 2018-12-19 11:24 | PM.PFT.1 ---
Pulmonary Function Test Referral & Results Date Patient Seen: 12/14/18 Requesting provider: Ravi Terrell Results: The spirometry demonstrates an FVC of 2.28 L which is 104% of predicted. The FEV1 was measured at 1.84 L which is 113% of predicted. The FEV1/FVC ratio was 81 which is 107% of predicted. No bronchodilator was administered. Lung volumes show an SVC of 2.43 L which is 110% of predicted. The diffusing capacity was measured at 13.48 which is 83% of predicted. The maximum voluntary ventilation was slightly reduced Interpretation: This study demonstrates essentially normal pulmonary function There may be a minimal reduction in diffusing capacity, unless patient is anemic of course.
== END ==
PROVIDERS: PCP Internal Medicine; Visit Provider Thoracic Surgery (Cardiothoracic Vascular Surgery)
DX: R91.1 Solitary pulmonary nodule (principal); Z01.818 Encounter for other preprocedural examination
CPT/HCPCS: 94010; 94726; 94729

== ENCOUNTER → 2019-04-24 10:04 | Outpatient (CLI) | payer MEDICARE, OTHER, SELFPAY | PROVIDERS: PCP Internal Medicine; Referring Provider Internal Medicine; Visit Provider Internal Medicine | DX: N63.10 Unspecified lump in the right breast, unspecified quadrant (principal); Z53.9 Procedure and treatment not carried out, unspecified reason | CPT/HCPCS: 77066; G0279 ==

== ENCOUNTER 2019-05-31 08:51 | Emergency (ER) | payer MEDICARE, OTHER, SELFPAY ==
[2019-05-31] VITALS (9 sets, daily range): BP systolic 173–222; BP diastolic 82–105; PULSE 66–80; RESP 15–27; TEMP 36.6; O2SAT 93–98; BMI 31.3
--- NOTE | 2019-05-31 09:03 | ED.ABDPAIN ---
HPI - Abdominal Pain General Chief Complaint: Abdominal Pain Stated Complaint: possible bowl blockage Time Seen by Provider: 05/31/19 09:02 Source: patient Mode of arrival: Ambulatory Limitations: no limitations History of Present Illness HPI narrative: 73-year-old lady with complex medical history including dialysis(continues to make urine daily), splenectomy, hysterectomy to prior bowel obstructions requiring surgery, recent lung cancer with a right lower lobe lung resection, coronary artery disease, hypertension, hyperlipidemia who presents with a week and a half of increased nausea and GI distress that she attributed to her dialysis. Yesterday began having profuse watery diarrhea with increasing abdominal pain. Diarrhea stopped early this morning. Over the last week and a half she has been vomiting 1 to 4 times a day. She notes that she did have small amount of flatus this morning but is concerned that she has recurrent bowel obstruction. No chest pain, dyspnea, orthopnea, fevers, chills, skin rashes, falls or altered mental status Related Data Home Medications Medication Instructions Recorded Confirmed temazepam 30 mg PO BEDTIME #0 09/07/12 05/31/19 allopurinol 100 mg PO DAILY 04/14/18 05/31/19 furosemide 40 mg PO BID 04/14/18 05/31/19 lidocaine-prilocaine 1 applic TOPICAL DIRECTED 04/14/18 05/31/19 sevelamer carbonate 1,600 mg PO TIDWM 04/14/18 05/31/19 cyclobenzaprine 1 tab PO BID PRN 10/10/18 05/31/19 ondansetron HCl 1 tab PO Q12HR PRN 10/10/18 05/31/19 acetaminophen [Tylenol Extra 500 mg PO PRN PRN 05/31/19 05/31/19 Strength] aspirin 81 mg PO DAILY 05/31/19 05/31/19 atorvastatin 40 mg PO DAILY 05/31/19 05/31/19 uxidkjbivk-eufuggjohgfyn-kriw 1 tab PO PRN 05/31/19 05/31/19 carvedilol 3.125 mg PO BID 05/31/19 05/31/19 Allergies Allergy/AdvReac Type Severity Reaction Status Date / Time ARLENE Inhibitors AdvReac Mild hacking Verified 05/31/19 08:59 [ARLENE INHIBITORS] cough codeine [CODEINE] AdvReac Mild vomiting Verified 05/31/19 08:59 Review of Systems Review of Systems Narrative: All systems reviewed and are unremarkable except as noted in HPI and below Patient History Medical History (Updated 05/31/19 @ 11:40 by Sydney Welch MD) Bowel obstruction (Acute) Chronic kidney disease, stage 4 (severe) (Acute) Coronary artery disease (Acute) Dialysis patient (Acute) Hyperlipidemia (Acute) Hypertension (Acute) Lung cancer (Acute) Lymphoproliferative disorder (Acute) Stroke (Acute) Surgical History (Updated 05/31/19 @ 09:16 by Sydney Welch MD) H/O: hysterectomy (Acute) History of bowel resection (Acute) History of pneumonectomy (Acute) S/P oophorectomy (Acute) S/P splenectomy (Acute) Social History Smoking Status: Former smoker Smoking Status: Former smoker alcohol intake frequency: other Substance Use Type: does not use Exam Narrative Exam Narrative: General: Healthy appearing, in no acute distress. Able to give a complete and coherent history. Well-nourished well-developed HEENT: Moist mucous membranes, normal sclera with reactive pupils, Neck: No JVD, supple Respiratory: Lungs are clear to auscultation, no wheezing no rales no rhonchi. Full and symmetrical air movement Cardiac: Regular rate and rhythm no murmurs no bruits Abdomen: Soft, diffusely tender, hypoactive bowel tones, no flank pain Skin: Warm and dry, no rashes Neurologic: Grossly neurologically intact with no obvious asymmetries or abnormalities Extremities: No trauma, well perfused, fistula right upper extremity Psych: Cooperative, appropriate insight and affect Initial Vital Signs Initial Vital Signs: Vital Signs Temperature 97.8 F 05/31/19 08:55 Pulse Rate 78 05/31/19 08:55 Respiratory Rate 15 05/31/19 08:55 Blood Pressure 187/82 H 05/31/19 08:55 Pulse Oximetry 93 05/31/19 08:55 Course Orders Ordered: Discontinued Medications Hydromorphone HCl (Dilaudid) 0.5 mg IV NOW ONE Stop: 05/31/19 09:23 Last Admin: 05/31/19 09:43 Dose: 0.5 mg Documented by: BTONER Hydromorphone HCl (Dilaudid) 0.5 mg IV Q15MIN PRN PRN Reason: pain Last Admin: 05/31/19 14:42 Dose: 0.5 mg Documented by: Admin: 05/31/19 12:04 Dose: 0.5 mg Documented by: BTONER Sodium Chloride (Normal Saline 0.9%) 1,000 mls @ 150 mls/hr IV CONT KT Last Infusion: 05/31/19 15:31 Dose: 150 mls/hr Documented by: Infusion: 05/31/19 15:30 Dose: 150 mls/hr Documented by: Admin: 05/31/19 12:04 Dose: 150 mls/hr Documented by: BTONER Sodium Chloride (Normal Saline 0.9%) 1,000 mls @ 1,000 mls/hr IV BOLUS ONE Stop: 05/31/19 10:21 Last Infusion: 05/31/19 11:00 Dose: 0 mls/hr Documented by: Admin: 05/31/19 09:44 Dose: 1,000 mls/hr Documented by: BTONER Ondansetron HCl (Zofran) 4 mg IV NOW ONE Stop: 05/31/19 09:23 Last Admin: 05/31/19 09:43 Dose: 4 mg Documented by: BTONER Ondansetron HCl (Zofran) 4 mg IV NOW ONE Stop: 05/31/19 12:17 Last Admin: 05/31/19 12:20 Dose: 4 mg Documented by: BTONER Vital Signs Vital signs: Vital Signs - 8 hr 05/31/19 11:00 05/31/19 12:00 05/31/19 13:04 Pulse Rate 80 74 71 Respiratory Rate 23 22 22 Blood Pressure [Left Wrist] 210/97 H 191/89 H 199/95 H Pulse Oximetry 98 97 96 05/31/19 14:00 05/31/19 15:00 05/31/19 15:11 Pulse Rate 66 77 72 Respiratory Rate 21 17 16 Blood Pressure [Left Wrist] 173/82 H 192/90 H 191/89 H Pulse Oximetry 97 95 98 MDM - Abdominal Pain Medical Records Attestation: I reviewed the patient's medical records. Lab Data Attestation: I reviewed the patient's lab results. Result diagrams: 05/31/19 09:03 05/31/19 09:03 Labs: Lab Results 05/31/19 05/31/19 05/31/19 Range/Units 09:03 09:03 09:03 WBC 13.7 H (4.5-11.0) X10^3/uL RBC 4.20 (4.0-5.2) X10^6/uL Hgb 12.8 (12.0-16.0) g/dL Hct 38.7 (36-46) % MCV 92.3 (80-100) fL MCH 30.6 (26-34) PG MCHC 33.2 (30-36) % RDW 14.2 (11.6-14.8) % Plt Count 303 (150-400) X10^3/uL Neut % (Auto) 69.5 (50-75) % Lymph % (Auto) 22.4 L (25-40) % [place] % (Auto) 6.6 (3-14) % Eos % (Auto) 1.2 L (2-4) % Baso % (Auto) 0.3 (0-2) % Neut # (Auto) 9600 H (6339-0598) /uL Lymph # (Auto) 3100 (3899-0346) /uL [place] # (Auto) 900 (0-900) /uL Eos # (Auto) 200 (0-450) /uL Baso # (Auto) 0 (0-100) /uL PT 12.2 (10.1-12.7) SECONDS INR 1.1 (0.9-1.3) APTT 37 H D (26.4-36.2) SECONDS Sodium 140 (137-145) mmol/L Potassium 5.1 (3.4-5.1) mmol/L Chloride 106 (98-107) mmol/L Carbon Dioxide 23 (22-32) mmol/L BUN 47 H (7-17) mg/dL Creatinine 4.34 H (0.52-1.04) mg/dL Estimated GFR 10.0 L (>60) mL/min BUN/Creatinine Ratio 10.8 (6-22) Glucose 110 (80-110) mg/dL Calcium 10.4 H (8.4-10.2) mg/dL Total Bilirubin 0.7 (0.2-1.3) mg/dL AST 33 (14-36) IU/L ALT 20 (<35) IU/L Alkaline Phosphatase 97 (38-126) U/L Total Protein 7.1 (6.3-8.2) g/dL Albumin 4.2 (3.5-5.0) g/dL Globulin 2.9 (1.7-4.1) g/dL Albumin/Globulin Ratio 1.4 (1.0-2.8) Lipase 671 H (23-300) U/L Point of care testing: Urine Dip Bedside Urine Glucose Negative Bedside Urine Bilirubin - Negative Bedside Urine Ketone - Negative Urine Specific Ceres 1.015 Bedside Urine Occult Blood +/- Bedside Urine pH 8.5 Bedside Urine Protein ++ 100 Bedside Urine Urobilinogen - Negative Bedside Urine Nitrite - Negative Bedside Urine Leukocytes - Negative Esterase Imaging Data Abdominal x-ray: Radiologist's Impression: IMPRESSION: Findings compatible small bowel obstruction. Dictated by: Carrie Jaeger MD, PhD on 05/31/2019 at 8:46 ECG Data Attestation: I personally reviewed and interpreted this ECG as follows: Interpretation: Sinus rhythm at a rate of 70 Normal intervals normal axis No acute ischemic changes MDM Narrative Medical decision making narrative: History, exam and x-ray all consistent with small-bowel obstruction. As she is a dialysis patient she will need to be transferred to a facility where inpatient dialysis is an option. At this point she is not nauseated or vomiting and an NG tube is not indicated. She is having a bit more pain. I suspect that the elevated lipase that were seeing is more a reflection of external pressure on the pancreas from the distended loop of bowel just over the pancreas rather than acute pancreatitis. This will need to be followed. [phone] phone call to [facility] to see if beds are available [id number] [place], hospitalist. Accepts patients. Will need to wait for bed availability. Discharge Plan Departure Patient Disposition: [facility] Clinical Impression: Small bowel obstruction, Dialysis patient Discharge Date/Time: 05/31/19 15:33 Prescriptions: No Action temazepam 30 MG capsule 30 mg PO BEDTIME Qty: 0 RF: 0 furosemide 40 mg tablet 40 mg PO BID RF: 0 allopurinol 100 mg tablet 100 mg PO DAILY RF: 0 lidocaine-prilocaine 2.5-2.5 % cream 1 applic Topical DIRECTED RF: 0 sevelamer carbonate 800 mg tablet 1,600 mg PO TIDWM RF: 0 ondansetron HCl 8 mg tablet 1 tab PO Q12HR PRN (Reason: Nausea) RF: 0 cyclobenzaprine 5 mg Tablet 1 tab PO BID PRN (Reason: Spasms) RF: 0 atorvastatin 40 mg tablet 40 mg PO DAILY RF: 0 dyworqzxur-clncndfzujjpo-umvf 50-325-40 mg tablet 1 tab PO PRN RF: 0 carvedilol 3.125 mg tablet 3.125 mg PO BID RF: 0 aspirin 81 mg Tablet,Delayed Release (Dr/Ec) 81 mg PO DAILY RF: 0 acetaminophen [Tylenol Extra Strength] 500 mg Tablet 500 mg PO PRN PRN (Reason: PAIN) RF: 0 Referrals: Malina Coker MD [Primary Care Provider] -
[2019-05-31 09:18] LABS: Add Manual Diff / Slide Review NO; Basophils Absolute Auto 0 /uL (0-100); Basophils Percent Auto 0.3 % (0-2); Eosinophils Absolute Auto 200 /uL (0-450); Eosinophils Percent Auto 1.2 % (2-4); Hematocrit 38.7 % (36-46); Hemoglobin 12.8 g/dL (12.0-16.0); Lymphocytes Absolute Auto 3100 /uL (1100-4500); Lymphocytes Percent Auto 22.4 % (25-40); Mean Corpuscular HGB Conc 33.2 % (30-36); Mean Corpuscular Hemoglobin 30.6 PG (26-34); Mean Corpuscular Volume 92.3 fL (80-100); Monocytes Absolute Auto 900 /uL (0-900); Monocytes Percent Auto 6.6 % (3-14); Neutrophils Absolute Auto 9600 /uL (1500-7000); Neutrophils Percent Auto 69.5 % (50-75); Platelet Count 303 X10^3/uL (150-400); Red Cell Distribution Width 14.2 % (11.6-14.8); White Blood Cell Count 13.7 X10^3/uL (4.5-11.0)
--- NOTE | 2019-05-31 09:21 | DI.RAD.S_ITS ---
PROCEDURE: XR ABDOMEN MIN 2V INDICATIONS: possible SBO TECHNIQUE: 2 views of the abdomen were acquired. COMPARISON: None. FINDINGS: Surgical changes and devices: Right-sided neurostimulator lead projecting into the sacral spine. Lower lumbar spine fixation hardware. Cholecystectomy clips. Bowel: No pneumoperitoneum. Dilated loop of small bowel noted in the left upper quadrant. There is an air-fluid level differential height associated with a dilated left upper quadrant small bowel loop. Scattered air-fluid levels noted throughout the abdomen. An Soft tissues: No masses; visualized solid organ contours appear normal in size. No suspicious abdominal calcifications. Bones: No suspicious bony abnormalities. IMPRESSION: Findings compatible small bowel obstruction. Dictated by: Carrie Jaeger MD, PhD on 05/31/2019 at 8:46 Approved by: Carrie Jaeger MD, PhD on 05/31/2019 at 8:47
[2019-05-31 09:25] LABS: INR 1.1 (0.9-1.3); Prothrombin Time 12.2 SECONDS (10.1-12.7)
[2019-05-31 09:28] LABS: PTT Partial Thromboplastin Tim 37 SECONDS (26.4-36.2)
[2019-05-31 09:30] LABS: Alanine Aminotransferase 20 IU/L (<35); Albumin 4.2 g/dL (3.5-5.0); Albumin Globulin Ratio 1.4 (1.0-2.8); Alkaline Phosphatase 97 U/L (38-126); Aspartate Aminotransferase 33 IU/L (14-36); BUN Creatinine Ratio 10.8 (6-22); Bilirubin Total 0.7 mg/dL (0.2-1.3); Blood Urea Nitrogen 47 mg/dL (7-17); Calcium 10.4 mg/dL (8.4-10.2); Carbon Dioxide 23 mmol/L (22-32); Chloride 106 mmol/L (98-107); Globulin 2.9 g/dL (1.7-4.1); Glucose 110 mg/dL (80-110); HEMOLYSIS < 15 (0-50); Lipase 671 U/L (23-300); Potassium 5.1 mmol/L (3.4-5.1); Sodium 140 mmol/L (137-145); Total Protein 7.1 g/dL (6.3-8.2)
[2019-05-31] MEDS: HYDROMORPHONE 0.5 MG INJ IV ×3 (09:43→14:42)
[2019-05-31] MEDS: ONDANSETRON 4 MG/2 ML INJ IV ×2 (09:43→12:20)
[2019-05-31] MEDS: SODIUM CHLORIDE 0.9% 1,000 ML 1000 ML IV (09:44)
[2019-05-31] MEDS: SODIUM CHLORIDE 0.9% 1,000 ML 150 ML IV (12:04)
== END 2019-05-31 15:33 | disposition short-term general hospital (02) ==
PROVIDERS: Emergency Provider Emergency Medicine; PCP Internal Medicine
DX: K56.609 Unspecified intestinal obstruction, unspecified as to partial versus complete obstruction (principal); Z99.2 Dependence on renal dialysis; I10 Essential (primary) hypertension; E78.5 Hyperlipidemia, unspecified; C34.90 Malignant neoplasm of unspecified part of unspecified bronchus or lung; I25.10 Atherosclerotic heart disease of native coronary artery without angina pectoris
CPT/HCPCS: 36415; 74019; 80053; 81003; 83690; 85025; 85610; 85730; 93005; 96361; 96374; 96375; 96376; 99284; J1170; J2405

== ENCOUNTER → 2019-09-04 12:37 | Outpatient (CLI) | payer MEDICARE, OTHER, SELFPAY | PROVIDERS: PCP Internal Medicine; Referring Provider Orthopaedic Surgery; Visit Provider Orthopaedic Surgery | DX: M54.5 Low back pain (principal); Z53.8 Procedure and treatment not carried out for other reasons ==

== ENCOUNTER → 2019-09-06 10:32 | Outpatient (CLI) | payer MEDICARE, OTHER, SELFPAY ==
--- NOTE | 2019-09-06 | DI.CT.S_ITS ---
PROCEDURE: CT SOFT TISSUE NECK WO CON INDICATIONS: Sialolithiasis TECHNIQUE: Non-contrast 3.0 mm axial sections acquired from the sella to the aortic arch. Additional oblique axial 3.0 mm sections acquired through the pharynx. 3 mm thick coronal and sagittal reformats were generated. For radiation dose reduction, the following was used: automated exposure control. COMPARISON: [facility], CT, NECK/CHEST/ABD/PEL WO CONTRAST, 07/30/2016, 13:52. [facility], CT, NECK/CHEST/ABD/PEL WO CONTRAST, 05/30/2015, 10:19. FINDINGS: Image quality: Excellent. Lymph nodes: No enlarged lymph nodes seen throughout the neck. Vessels: Non-opacified vessels appear normal in caliber. Neck spaces: The oropharynx, nasopharynx, and pharynx demonstrate no mucosal lesions. The vocal cords, false vocal cords, pyriform sinuses, epiglottis, vallecula, and tongue base all appear normal. Extramucosal spaces appear unremarkable. Glands: In this patient with this given history, scrutiny is given to salivary duct stones. No salivary ductal stones are seen. The parotid glands demonstrate asymmetric appearance, with mild fatty atrophy. No carotid stones are seen. The submandibular glands appear normal, without stones. Thyroid gland demonstrates no significant noncontrast CT abnormality. Miscellaneous: Visualized brain and orbits appear normal. Likely scarring change can be seen involving the right lung apex. Emphysematous changes are seen. Superficial soft tissues appear normal. Relatively prominent cervical spine degenerative changes are seen, with at least moderate disc space narrowing at the C4-C5, C5-C6, and C6-C7 levels. IMPRESSION: No findings of salivary stones or salivary duct stones are seen. Likely scarring change is seen involving the right lung apex. Incidental note is made of: Emphysema Relatively prominent cervical spine degenerative change Dictated by: Bob Cano M.D. on 09/06/2019 at 10:44 Approved by: Bob Cano M.D. on 09/06/2019 at 10:47
== END ==
PROVIDERS: PCP Internal Medicine; Referring Provider Student in an Organized Health Care Education/Training Program; Visit Provider Student in an Organized Health Care Education/Training Program
DX: K11.5 Sialolithiasis (principal); J43.9 Emphysema, unspecified; M47.812 Spondylosis without myelopathy or radiculopathy, cervical region
CPT/HCPCS: 70490

== ENCOUNTER → 2019-09-29 13:30 | Outpatient (CLI) | payer MEDICARE, OTHER, SELFPAY ==
--- NOTE | 2019-09-29 | DI.RAD.S_ITS ---
PROCEDURE: XR CHEST 2V INDICATIONS: SHORTNESS OF BREATH TECHNIQUE: 2 views of the chest were acquired. COMPARISON: [facility], CR, XR ABDOMEN MIN 2V, 05/31/2019, 8:26. [facility], CR, XR CHEST 2 VIEWS, 05/19/2017, 12:03. [facility], CR, XR CHEST 1 VIEW, 04/20/2019, 12:30. [facility], CR, XR CHEST 1V, 10/10/2018, 13:52. FINDINGS: Surgical changes and devices: None. Lungs and pleura: Lungs are clear. Interstitium is prominent. No pleural effusions or pneumothorax. Mediastinum: Mediastinal contours are normal. Heart size is enlarged. Bones and chest wall: No suspicious bony abnormalities. Soft tissues appear unremarkable. IMPRESSION: Mild interstitial prominence similar to prior examination. No acute cardiopulmonary disease. Dictated by: Markel Richard [facility] Interpreted: Shashank Harden MD on 09/29/2019 at 14:28 Approved by: Shashank Harden M.D. on 09/29/2019 at 15:52
== END ==
PROVIDERS: PCP Internal Medicine; Referring Provider Student in an Organized Health Care Education/Training Program; Visit Provider Student in an Organized Health Care Education/Training Program
DX: R06.02 Shortness of breath (principal); I51.7 Cardiomegaly
CPT/HCPCS: 71046

== ENCOUNTER → 2019-12-08 09:51 | Outpatient (CLI) | payer MEDICARE, OTHER, SELFPAY ==
[2019-12-08 10:50] LABS: Cholesterol 261 mg/dL (140-199); HDL Cholesterol 51 mg/dL (40-60); LDL Cholesterol Calculated 164 mg/dL (<100); Triglycerides 229 mg/dL (35-150)
[2019-12-08 12:32] LABS: Vitamin D 25 Hydroxy (D3) 29.4 ng/mL (30.0-100.0)
== END ==
PROVIDERS: PCP Internal Medicine; Referring Provider Internal Medicine Cardiovascular Disease; Visit Provider Internal Medicine Cardiovascular Disease
DX: E78.2 Mixed hyperlipidemia (principal); M81.0 Age-related osteoporosis without current pathological fracture
CPT/HCPCS: 36415; 80061; 82306

== ENCOUNTER → 2019-12-25 12:32 | Outpatient (CLI) | payer MEDICARE, OTHER, SELFPAY ==
--- NOTE | 2019-12-25 | DI.US.S_ITS ---
ULTRASOUND OF RIGHT BREAST: 12/25/2019 CLINICAL: Palpable right breast lump and focal pain. Comparison is made to exams dated: 12/25/2019 mammogram - [facility], 06/09/2019 ultrasound, 06/09/2019 mammogram, 02/23/2018 mammogram - [facility], and 06/25/2015 ultrasound - [facility]. Ultrasound of the right breast was performed on the area of interest. Hodges scale images of the real-time examination were reviewed. IMPRESSION: NEGATIVE There is no sonographic evidence of malignancy. There is no mammographic or sonographic abnormality seen in the right breast or in the right axilla to correspond with the patient's palpable lump and pain, however, clinical followup is recommended. A 1 year screening mammogram is recommended. This exam was interpreted at Station ID: [id number]. Electronically Signed By: Sherin Mendez M.D. lk/:12/25/2019 14:46:00 copy to: CHANNING EPPERSON letter sent: Clinical Evaluation Ultrasound BI-RADS: 1 Negative
--- NOTE | 2019-12-25 | DI.MG.S_ITS ---
UNILATERAL RIGHT DIGITAL DIAGNOSTIC MAMMOGRAM 3D/2D: 12/25/2019 CLINICAL: Right breast lump. Comparison is made to exams dated: 06/09/2019 ultrasound, 06/09/2019 mammogram, and 02/23/2018 mammogram - [facility]. There are scattered fibroglandular elements in right breast. No significant masses, calcifications, or other findings are seen in the breast or right axilla. IMPRESSION: INCOMPLETE: NEEDS ADDITIONAL IMAGING EVALUATION There is no mammographic abnormality seen in the right breast to correspond with the palpable abnormality and pain, however, ultrasound is recommended. This exam was interpreted at Station ID: [id number]. NOTE: For mammograms, a report in lay terms will be sent to the patient. Approximately 15% of breast malignancies will not be visualized mammographically. In the management of a palpable breast mass, a negative mammogram must not discourage biopsy of a clinically suspicious lesion. Electronically Signed By: Sherin Mendez M.D. lk/:12/25/2019 13:56:49 copy to: CHANNING TROTTER BI-RADS Category 0: Incomplete [id number]
== END ==
PROVIDERS: PCP Internal Medicine; Referring Provider Internal Medicine; Visit Provider Internal Medicine
DX: R92.8 Other abnormal and inconclusive findings on diagnostic imaging of breast (principal); N63.10 Unspecified lump in the right breast, unspecified quadrant; N64.4 Mastodynia
CPT/HCPCS: 76642; 77065; G0279

== ENCOUNTER → 2020-09-11 09:55 | Outpatient (CLI) | payer MEDICARE, OTHER, SELFPAY ==
[2020-09-11 11:03] LABS: COVID19 -Nasal RAPID Negative (Negative)
== END ==
PROVIDERS: PCP Internal Medicine; Visit Provider Physician Assistant
DX: Z01.812 Encounter for preprocedural laboratory examination (principal); Z20.822 Contact with and (suspected) exposure to COVID-19
CPT/HCPCS: 87635; C9803

== ENCOUNTER 2020-09-13 13:29 | Day surgery (SDC) | payer MEDICARE, OTHER, SELFPAY ==
[2020-09-12 09:23] VITALS: BMI 31.3
[2020-09-13 13:53] VITALS: BP 151/72; PULSE 65; RESP 16; TEMP 36.5; O2SAT 97; BMI 31.3
[2020-09-13 13:59] LABS: BUN Creatinine Ratio 5.8 (6-22); Blood Urea Nitrogen 39 mg/dL (7-17); Calcium 11.5 mg/dL (8.4-10.2); Carbon Dioxide 25 mmol/L (22-32); Chloride 98 mmol/L (98-107); Glucose 92 mg/dL (80-110); HEMOLYSIS < 15 (0-50); Potassium 5.3 mmol/L (3.4-5.1); Sodium 135 mmol/L (137-145)
[2020-09-13] MEDS: LACTATED RINGERS 1,000 ML 42 ML IV (14:08)
--- NOTE | 2020-09-13 14:53 | P.OP_ITS ---
Operative Date/Time/Diagnoses Date of procedure: 09/13/20 Time of procedure: 14:53 Pre-op diagnosis: Chronic thick and curved, painful toenails to the right and left feet Post-op diagnosis: same Procedure & Clinicians Procedure: Matrixectomy toenails LEFT one, two, three, four, and RIGHT toenail one Same procedure as scheduled: Yes Indications: New and recurrent painful thickened dystrophic toenails to the right and left feet. She wished to have permanent toenail removal of these at this time. We spoke of the risks, potential complications, and expected outcomes. Consent is given and no contraindications to the procedure at this time. Surgeon: Elizabeth Mccord Click Yes if Unassisted: Yes Anesthesia Type: General Operative Notes Closure Type: not applicable Specimen(s): none sent Estimated Blood Loss (mL): 5 Blood products transfused: none Procedure in detail: Patient was brought to the operating room and placed on the operative table in supine position. Following induction of general anesthesia the recorded anesthesia injectables were delivered to the patient's toes. The feet were prepped and draped in the usual aseptic manner. After check of anesthesia, [place] drain was placed about the left hallux. The hallux nail was removed gently in total. The surrounding skin was protected with triple antibiotic ointment and a series of 4 applications of phenol at 30 sec each were placed in the area. Following each the area was curetted and after the last was rinsed with alcohol. The same procedure was performed to the left toes two, three, and four. The belem tourniquets were removed, a prompt hyperemic response was seen to the toes. Belem time was approximately 20 minutes. The same procedure was performed to the right hallux, except this was a medial and lateral border treatment, as the center was already devoid of nail. The belem tourniquet was removed, a prompt hyperemic response was seen to the toe. [place] time was approximately 7 minutes. The toes on left and right feet that were treated were cleaned and dressed with triple antibiotic ointment, Xeroform, 4x4s, and gently placed coban on the right, with kerlix and stockinette on the left. She was transferred to the PACU with vital signs stable and vascular status intact. . Complications: none Post-operative Condition: stable Disposition: PACU Plan for aftercare: Following a period of postoperative monitoring, the patient will be discharged to home on written and oral postoperative instructions including keeping the dressings dry and intact until tomorrow morning where her 1st postoperative soaks will be performed. Instructions for the soaks have already been given. We will see her back in approximately 1-2 weeks for a recheck, earlier if concerns prior.
--- NOTE | 2020-09-13 14:53 | PM.PREOP ---
Pre-operative Note COVID-19 COVID-19 status: Negative Result date/Date tested (Pos, Neg/Pending): 09/11/20 Interval Note History & Physical reviewed/Exam performed by Physician: Yes Changes to H&P: No
[2020-09-13] MEDS: CEFAZOLIN 1 GM VIAL IM (15:05)
--- NOTE | 2020-09-13 15:28 | SUR.OPER ---
Supine on padded OR bed, head on pillow, arms secured on padded arm boards at <90 degrees abduction, legs uncrossed, safety belt at thigh, tape over blanket over lower legs.
[2020-09-13] MEDS: NEOMYCIN/POLYMYXIN/BACITRA UD OINT 1 EACH TOP (15:36)
[2020-09-13] MEDS: BUPIVACAINE 0.5% (PF) VIAL 30 ML INJ (15:36)
[2020-09-13] MEDS: LIDOCAINE 2% INJ MDV 20 ML INJ (15:37)
[2020-09-13] MEDS: SODIUM CHLORIDE 0.9% 1,000 ML 84 ML IV (15:50)
--- NOTE | 2020-09-13 16:01 | SUR.OPER ---
belem used as tourniquet on toes. Left foot time 20min, right foot time 7min ]
[2020-09-13 16:19] VITALS: BP 145/51; PULSE 64; RESP 16; TEMP 36.8; O2SAT 98
[2020-09-13 16:24] VITALS: BP 114/55; PULSE 65; RESP 14; O2SAT 95
[2020-09-13 16:29] VITALS: BP 137/81; PULSE 60; RESP 14; O2SAT 98
[2020-09-13 16:40] VITALS: BP 144/65; PULSE 65; RESP 16; TEMP 36.1; O2SAT 97
== END 2020-09-13 16:55 | disposition home or self-care (01) ==
PROVIDERS: Anesthesiology; PCP Internal Medicine; Referring Provider Podiatrist; Visit Provider Podiatrist
PROC: 0HTRXZZ Resection of Toe Nail, External Approach (ICD-10-PCS; CPT 11750; principal; 2020-09-13 13:45)
DX: L60.3 Nail dystrophy (principal); M79.674 Pain in right toe(s); M79.672 Pain in left foot; I10 Essential (primary) hypertension; N28.9 Disorder of kidney and ureter, unspecified; Z99.2 Dependence on renal dialysis
CPT/HCPCS: 11750 ×5; 80048; J0690; J1100; J2405; J2704; J3010

== ENCOUNTER → 2020-12-16 11:52 | Outpatient (CLI) | payer MEDICARE, OTHER, SELFPAY ==
[2020-12-16 13:43] LABS: Influenza A - CEPHEID Flu A NEGATIVE (NEGATIVE); Influenza B - CEPHEID Flu B NEGATIVE (NEGATIVE)
[2020-12-16 13:46] LABS: COVID19 -Nasal RAPID Negative (Negative)
== END ==
PROVIDERS: PCP Internal Medicine; Visit Provider Family Medicine
DX: Z20.822 Contact with and (suspected) exposure to COVID-19 (principal); R11.2 Nausea with vomiting, unspecified; R19.7 Diarrhea, unspecified; R52 Pain, unspecified; R53.81 Other malaise; R53.83 Other fatigue
CPT/HCPCS: 87502; 87635

== ENCOUNTER → 2021-02-06 10:21 | Outpatient (CLI) | payer MEDICARE, OTHER, SELFPAY ==
[2021-02-06 12:44] LABS: Cholesterol 170 mg/dL (140-199); HDL Cholesterol 49 mg/dL (40-60); LDL Cholesterol Calculated 86 mg/dL (<100); Triglycerides 177 mg/dL (35-150)
== END ==
PROVIDERS: PCP Family Medicine; Referring Provider Internal Medicine Cardiovascular Disease; Visit Provider Internal Medicine Cardiovascular Disease
DX: E78.2 Mixed hyperlipidemia (principal)
CPT/HCPCS: 36415; 80061

== ENCOUNTER → 2021-02-28 08:54 | Outpatient (CLI) | payer MEDICARE, OTHER, SELFPAY ==
[2021-02-28 13:49] LABS: COVID19 -Nasal RAPID Negative (Negative)
== END ==
PROVIDERS: PCP Family Medicine; Referring Provider Internal Medicine; Visit Provider Internal Medicine
DX: Z20.822 Contact with and (suspected) exposure to COVID-19 (principal)
CPT/HCPCS: 87635; C9803

== ENCOUNTER → 2021-02-28 08:55 | Outpatient (CLI) | payer MEDICARE, OTHER, SELFPAY ==
--- NOTE | 2021-03-05 09:55 | PM.PFT.1 ---
Pulmonary Function Test Referral & Results Date Patient Seen: 02/28/21 Requesting provider: Lashawn Cisneros Results: The spirometry demonstrates an FVC of 2.10 L which is 95% of predicted. The FEV1 was measured at 1.59 L which is 96% of predicted. The FEV1/FVC ratio was 76 which is 100% of predicted. Following the administration of bronchodilator there was a 30% improvement in FEF 25-75% Lung volumes show an SVC of 2.10 L which is 92% of predicted. The diffusing capacity was measured at 15.03 which is 85% of predicted. No hemoglobin value was provided, so no correction for potential anemia could be made, if appropriate. The maximum voluntary ventilation was reduced Interpretation: This study demonstrates normal spirometry. There may be a minimal reduction diffusing capacity suggesting the possibility of some element of disease at the capillary alveolar level, unless patient is anemic There is also reduction in maximum voluntary ventilation which in the absence of significant spirometric abnormality suggest the presence of neuromuscular disease Clinical correlation suggested
== END ==
PROVIDERS: PCP Family Medicine; Referring Provider Internal Medicine Cardiovascular Disease; Visit Provider Internal Medicine Cardiovascular Disease
DX: R06.02 Shortness of breath (principal); Z87.891 Personal history of nicotine dependence; Z20.822 Contact with and (suspected) exposure to COVID-19; J98.8 Other specified respiratory disorders
CPT/HCPCS: 87635; 94060; 94726; 94729; C9803

== ENCOUNTER → 2021-04-02 11:36 | Outpatient (CLI) | payer MEDICARE, OTHER, SELFPAY ==
[2021-04-02 13:20] LABS: COVID19 -Nasal RAPID Negative (Negative)
== END ==
PROVIDERS: PCP Family Medicine; Visit Provider Nurse Practitioner Family
DX: Z01.812 Encounter for preprocedural laboratory examination (principal); Z20.822 Contact with and (suspected) exposure to COVID-19
CPT/HCPCS: 87635; C9803

== ENCOUNTER → 2021-04-03 08:15 | Outpatient (CLI) | payer MEDICARE, OTHER, SELFPAY | PROVIDERS: PCP Family Medicine; Referring Provider Student in an Organized Health Care Education/Training Program; Visit Provider Student in an Organized Health Care Education/Training Program | DX: R07.89 Other chest pain (principal); Z53.8 Procedure and treatment not carried out for other reasons ==

== ENCOUNTER → 2021-04-14 10:44 | Outpatient (CLI) | payer MEDICARE, OTHER, SELFPAY ==
[2021-04-14 12:47] LABS: COVID19 -Nasal RAPID Negative (Negative)
--- NOTE | 2021-04-15 11:43 | PM.TREADMILL ---
Cardiac Stress Test Report Referral & Results Date Patient Seen: 04/15/21 Time Patient Seen: 11:49 Requesting provider: Lashawn Cisneros Indication: chest pain Rest ECG: sinus rhythm Procedure Note: After Lexiscan injection had minimal dyspnea but 8/10 chest pressure witn less than 1 mm T wave inversion in V4-V5 T wave inversion resolved after 4 minutes into recovery Chest pressure resolved without intervention after 4:30 minutes into recovery Nausea and vomiting after Lexiscan injection; no aminophylline was given Impression: Positive Lexiscan stress test Please note: Actual ECG tracings can be found in the PACS system.
--- NOTE | 2021-04-16 05:43 | DI.NM.S_ITS ---
DATE OF SERVICE: PROCEDURE: Pharmacological perfusion study. DATE OF STUDY: April 14, 2021 INDICATIONS: Shortness of breath with history of end-stage renal disease, coronary artery calcification, hypertension, hyperlipidemia. RADIOPHARMACEUTICAL: 26.0 millicurie technetium-99m Myoview IV was injected at stress and 23.7 millicurie technetium-99m Myoview IV was injected at rest. CARDIAC STRESS: The patient underwent IV Lexiscan perfusion study under the supervision of an attending staff using standard intravenous Lexiscan as per protocol. She remained hemodynamically stable. Baseline rhythm was sinus with some nonspecific ST/T changes. During Lexiscan, there was T-wave inversion in V4 to V5 without any significant new ST depression. No significant arrhythmias seen. The patient felt minimal dyspnea and chest pressure during Lexiscan. RAW DATA: There is significant subdiaphragmatic activity and hot spot near the inferior border of the heart. Breast shadow was seen as well. GATED STUDY: Resting LV ejection fraction 51 percent and stress LV ejection fraction 41 percent without any obvious regional wall motion abnormalities. Resting end-diastolic volume 189 mL suggestive of dilated LV. TID ratio 1.0, which is within normal limits. Lung/heart ratio 0.31, which is within normal limits. MYOCARDIAL PERFUSION SCAN: Stress supine, resting supine and stress prone images were compared to each other. There appears to be a small to moderate size, mildly reversible perfusion defect involving mid to distal anterior wall. There is also moderate-sized moderately decreased perfusion of inferior wall which got completely resolved during stress prone images which are better defined in vertical long-axis view. CONCLUSION: This is an abnormal myocardial perfusion study with mild reversible ischemia of mid to distal anterior wall. There is an element of diaphragmatic tissue attenuation artifact as well as hot spot near inferior border causing inferior wall defect got improved with prone images. The stress left ventricular ejection fraction 41 percent and resting left ventricular ejection fraction 51 percent. The patient had a perfusion study in August 2017, at that time distal anterior wall, anterior lateral and lateral wall defect improved on prone images. I do not see any improvement in this study. At that time the stress left ventricular ejection fraction was 75 percent and in this study the stress left ventricular ejection fraction decreased to 41 percent. Left ventricle is dilated. Ana Rojas - PATSY/sara/hillary doc#: [id number]/job#: [id number] dd: 04/15/2021 18:18:00 dt: 04/16/2021 05:00:00 DICTATING MD/COPIES TO: Lashawn Cisneros MD COPIES MNE: SARANYA;
== END ==
PROVIDERS: PCP Family Medicine; Referring Provider Internal Medicine Cardiovascular Disease; Visit Provider Internal Medicine Cardiovascular Disease
DX: R94.39 Abnormal result of other cardiovascular function study (principal); R07.89 Other chest pain; R06.02 Shortness of breath; I12.0 Hypertensive chronic kidney disease with stage 5 chronic kidney disease or end stage renal disease; N18.6 End stage renal disease; I25.10 Atherosclerotic heart disease of native coronary artery without angina pectoris; E78.5 Hyperlipidemia, unspecified
CPT/HCPCS: 78452; 87635; 93017; A9502; J2785

== ENCOUNTER → 2021-10-29 09:43 | Outpatient (CLI) | payer MEDICARE, OTHER, SELFPAY ==
[2021-10-29 10:19] LABS: COVID19 -Nasal RAPID Negative (Negative)
== END ==
PROVIDERS: PCP Family Medicine; Referring Provider Orthopaedic Surgery; Visit Provider Orthopaedic Surgery
DX: Z20.822 Contact with and (suspected) exposure to COVID-19 (principal)
CPT/HCPCS: 87635; C9803

== ENCOUNTER 2021-10-30 07:25 | Day surgery (SDC) | payer MEDICARE, OTHER, SELFPAY ==
[2021-10-29 12:36] VITALS: BMI 29.6
[2021-10-30 08:06] VITALS: BP 144/80; PULSE 72; RESP 18; TEMP 36; O2SAT 95; BMI 28.5
[2021-10-30] MEDS: LACTATED RINGERS 1,000 ML 42 ML IV (08:16)
--- NOTE | 2021-10-30 09:26 | PM.HP.1 ---
History of Present Illness History of Present Illness Date Patient Seen: 10/30/21 Time Patient Seen: 09:15 Chief complaint: *SDC* Narrative: This 75-year-old female with history of arthritic changes to the left hand. Patient was having significant amount of pain involving the left index finger D IP joint. Patient was unresponsive to conservative treatment and is interested in having that joint fused. Patient History Medical History Arthritis AV fistula Bowel obstruction Chronic insomnia Chronic kidney disease, stage 4 (severe) Colon cancer Coronary artery disease Dialysis patient End-stage kidney disease Gout Headache Hyperlipidemia Hyperparathyroidism Hypertension Insomnia Lung cancer Lung cancer, lower lobe Lymphoproliferative disorder Myocardial infarction (~2012) NSTEMI (non-ST elevated myocardial infarction) Pre-op evaluation Right hand fracture Stress incontinence Stroke Surgical History H/O: hysterectomy History of bowel resection History of cataract extraction History of orthopedic surgery (09/13/20) History of pneumonectomy History of surgery on right wrist Hx of appendectomy Hx of hernia repair Hx of spinal fusion S/P oophorectomy S/P splenectomy Family & Social History Social History: household members spouse Tobacco & Substance use: Smoking Status Former smoker alcohol intake never alcohol intake frequency other Substance Use Type does not use Meds Home Medications and Allergies Home Medications Medication Instructions Recorded Confirmed Type allopurinol 100 mg tablet 100 mg PO DAILY 04/14/18 10/29/21 History cyclobenzaprine 5 mg tablet 1 tab PO BID PRN Spasms 10/10/18 10/29/21 History ondansetron HCl 8 mg tablet 1 tab PO Q12HR PRN Nausea 10/10/18 10/29/21 History acetaminophen 500 mg tablet 500 mg PO PRN PRN PAIN 05/31/19 10/29/21 History (Tylenol Extra Strength) carvedilol 3.125 mg tablet 12.5 mg PO BID 05/31/19 10/29/21 History evolocumab 140 mg/mL subcutaneous 140 mg SUBCUT Q2W 09/12/20 10/29/21 History syringe (Repatha Syringe) clonidine 0.2 mg/24 hr weekly 0.2 mg transdermal WEEKLY 09/13/20 10/29/21 History transdermal patch sodium zirconium cyclosilicate 5 10 g PO DAILY 12/16/20 10/29/21 History gram oral powder packet (Lokelma) gabapentin 100 mg capsule 200 mg PO BEDTIME #180 caps 05/19/21 10/29/21 Rx temazepam 30 mg capsule 30 mg PO BEDTIME #90 caps 06/20/21 10/29/21 Rx tramadol 50 mg tablet 50 mg PO BID PRN pain #30 tabs 10/28/21 10/29/21 Rx apixaban 2.5 mg tablet (Eliquis) 2.5 mg PO DAILY 10/30/21 10/30/21 History Allergies Allergy/AdvReac Type Severity Reaction Status Date / Time denosumab Allergy Severe Symptomatic Verified 10/30/21 07:59 hypocalcemia amlodipine Allergy Swelling Verified 10/30/21 07:59 clopidogrel Allergy Verified 10/30/21 07:59 ARLENE Inhibitors AdvReac Mild hacking Verified 10/30/21 07:59 [ARLENE INHIBITORS] cough codeine [CODEINE] AdvReac Mild vomiting Verified 10/30/21 07:59 cinacalcet AdvReac Nausea Verified 10/30/21 07:59 hydrocodone AdvReac Nausea Verified 10/30/21 07:59 morphine AdvReac Nausea Verified 10/30/21 07:59 oxycodone AdvReac Nausea Verified 10/30/21 07:59 tramadol AdvReac Nausea Verified 09/23/21 09:19 Exam Vital Signs (past 8 hours): - 10/30/21 08:06 Temperature 96.8 F L Pulse Rate 72 Respiratory Rate 18 Blood Pressure 144/80 H Pulse Oximetry 95 Oxygen Delivery Method Room Air Oxygen Flow Rate 0 Oxygen Delivery Method Room Air Oxygen Flow Rate 0 Narrative Exam Narrative: Patient with arthritic changes to the D IP joint of the index finger. Positive dorsal osteophytes. Able to fully extend but very limited in flexion. Pain with both active and passive range of motion. No sign of any instability. Assessment & Plan Assessment & Plan narrative: Patient with end-stage arthritic changes to the index finger PIP joint of the left hand. Due to this fact, patient is interested in surgical treatment which would involve a fusion of the D IP joint. All of the patient's questions and concerns were answered to her full satisfaction and consent form was freely obtained. The risk, benefits, alternatives, possible complications, operative course, and postop outcomes were discussed. Complications including but not limiting to bleeding, infection, fracture, nerve injury, continued pain postoperatively or instability postoperatively were discussed in detail. Medical complications including but not limited to deep venous thrombosis event, anesthesia complications with excessive bleeding, vascular events or cardiac events and other possible complications were discussed in detail. Need for postoperative rehabilitation and anticipated hospital stay and clinical course were discussed in detail. Patient acknowledges understanding and elects to proceed with surgery. Time Spent With Patient Critical Care time: I spent a total of [] minutes of critical care time on this patient's care today; this time is exclusive of procedural time.
--- NOTE | 2021-10-30 09:29 | PM.PREOP ---
Pre-operative Note Interval Note History & Physical reviewed/Exam performed by Physician: Yes Changes to H&P: No
[2021-10-30] MEDS: CEFAZOLIN VIAL 1 GM in SODIUM CHLORIDE 0.9% 100 ML IV (10:28)
--- NOTE | 2021-10-30 10:36 | SUR.OPER ---
Supine on padded OR bed, head on pillow, right arm secured on padded arm boards at <90 degrees abduction, left arm on padded arm table under control of surgeon, legs uncrossed, safety belt at thigh, tape over blanket over lower legs.
[2021-10-30] MEDS: BUPIVACAINE 0.5% W/ EPI (PF) 30 ML VIAL INJ (10:40)
[2021-10-30 11:01] VITALS: BP 149/77; PULSE 72; RESP 18; TEMP 36.6; O2SAT 92
[2021-10-30 11:06] VITALS: BP 156/84; PULSE 70; RESP 13; O2SAT 92
--- NOTE | 2021-10-30 11:10 | P.OP_ITS ---
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 The surgery was once again discussed with the patient and any remaining questions or concerns she had were answered fully. Patient was taken back to the operating theater and placed on the operating table in a supine position. Great care was taken to ensure that all bony prominences were appropriately padded. Well-padded tourniquet was placed up along the upper extremity and a time-out was performed verifying patient's name, procedure, and operative site. The arm was prepped and draped in the normal sterile fashion. Esmarch was used to exsanguinate the limb and the tourniquet was turned up to 250 mmHg. An H type incision was made given us visualization of the D IP joint. Fifteen blade was used to incise through skin as well as deeper tissue. The transverse portion of the incision was right over the DIP joint. Deep knife was used to enter into the D IP joint allowing us to expose the joint. Patient had end- stage arthritic changes to the joint with some dorsal osteophytes. Rongeur was then used to remove those dorsal osteophytes as well as remove any remaining cartilage or sclerotic bony tissue around the joint until we had more bleeding healthier bone for the fusion. Next, K-wire was placed across the joint to provisionally hold it in position. Second K-wire was placed as a anti- rotational K-wire. C-arm was brought in and x-rays were obtained. Once we were satisfied with our position of the fusion, depth gauge was used to measure the 1st K-wire and the appropriate sized AcuTrak screw was placed. This provided good compression across the joint surface. And provided a secure stable fixation. Final x-rays were obtained. The wound was copiously irrigated. The wound was closed and the finger was cleaned, dried, and dressed. Patient was placed in a splint and taken to the PACU in stable condition. Complications: none Post-operative Condition: stable Disposition: PACU Plan for aftercare: Patient will have the D IP joint immobilized for 6 weeks. No restrictions to range of motion to the PIP or MCP joint of the index finger. No lifting more than 2-3 lb.
[2021-10-30 11:11] VITALS: BP 166/91; PULSE 73; RESP 20; O2SAT 94
[2021-10-30 11:17] VITALS: BP 177/89; PULSE 69; RESP 28; O2SAT 95
== END 2021-10-30 11:28 | disposition home or self-care (01) ==
PROVIDERS: PCP Family Medicine; Referring Provider Orthopaedic Surgery; Visit Provider Orthopaedic Surgery
PROC: (CPT 26860; principal; 2021-10-30 09:45)
DX: M19.041 Primary osteoarthritis, right hand (principal); M25.741 Osteophyte, right hand; Z86.73 Personal history of transient ischemic attack (TIA), and cerebral infarction without residual deficits; I48.0 Paroxysmal atrial fibrillation; I25.10 Atherosclerotic heart disease of native coronary artery without angina pectoris; I12.0 Hypertensive chronic kidney disease with stage 5 chronic kidney disease or end stage renal disease; N18.6 End stage renal disease; Z99.2 Dependence on renal dialysis
CPT/HCPCS: 26860; J0690; J2405; J2704; J3010